=== PATIENT | female | born 2000 | race Caucasian/White ===

== ENCOUNTER 2024-12-24 22:26 | Emergency (ER) | payer OTHER ==
[~2024-12-24] VITALS: Ht 172.7 cm; Wt 65.5 kg
[2024-12-24 22:48] VITALS: BP 115/74; TEMP 36.8; O2SAT 99
[2024-12-24 22:51] VITALS: PULSE 77; RESP 19; O2SAT 100
[2024-12-24] MEDS ORDERED: OSEL30CA MT (23:17)
[2024-12-25 01:19] LABS: INFLUENZA TYPE A Presumptive Negative (Pres. Neg.)
[2024-12-25 01:20] LABS: INFLUENZA TYPE B Presumptive Negative (Pres. Neg.); RESPIRATORY SYNCYTIAL VIRUS Not Detected (Not Detectd)
== END 2024-12-25 02:06 | disposition left against medical advice (07) ==
LOC: ER 22:26
DX: J02.9 Acute pharyngitis, unspecified (principal); R05.9 Cough, unspecified; R09.81 Nasal congestion; R09.89 Other specified symptoms and signs involving the circulatory and respiratory systems
CPT/HCPCS: 81025; 87420; 87430; 87804; 99283